=== PATIENT | female | born 1950 | race African-American/Black ===

== ENCOUNTER 2018-12-20 08:55 | Day surgery (SDC) | payer MEDICARE ==
[~2018-12-20] VITALS: Ht 162.6 cm; Wt 68.0 kg
[2018-12-20 09:45] LABS: BASOPHILS 0.4 % (0-2); EOSINOPHILS 1.1 % (0-7); HEMATOCRIT 43.3 % (36.0-48.0); HEMOGLOBIN 14.6 g/dL (12-16); IMMATURE GRANULOCYTES 0.2 % (0-5); LYMPHOCYTES 38.4 % (15-50); MCH 33.3 pg (26.0-34.0); MCHC 33.7 g/dL (31.0-37.0); MCV 98.6 fL (80.0-100.0); MEAN PLATELET VOLUME 11.2 fL (7.4-10.4); MONOCYTES 9.5 % (2-11); NEUTROPHILS 50.4 % (40-80); PLATELET COUNT 216 10x3/uL (130-400); RBC 4.39 10x6/uL (4.00-5.40); RDW 12.8 % (11.5-14.5); WBC 4.7 10x3/uL (4.8-10.8)
[2018-12-20 09:47] LABS: ANION GAP 14.3 mmol/L (8-16); CALCIUM 9.5 mg/dL (8.5-10.1); CREATININE - SERUM 0.9 mg/dL (0.6-1.3); POTASSIUM - SERUM 4.3 mmol/L (3.5-5.1)
[2018-12-20 10:21] LABS: INR 0.99 (0.85-1.17); PROTIME 12.6 SECONDS (11.6-15.0)
[2018-12-20 11:12] VITALS: BP 142/50; BMI 25.8
[2018-12-20 11:15] VITALS: BP 142/50; Ht 162.6 cm; Wt 68.0 kg
--- NOTE | 2018-12-20 18:25 | NUR ---
PATIENT AMBULATES TO BATHROOM AND VOIDS LARGE AMOUNT IN TOILET WITHOUT DIFFICULTY. AMBULATES WITHOUT UNSTEADINESS, RIGHT WRIST PIV DC'D WITH TIP INTACT. PATIENT DRESSING IN PERSONAL CLOTHING
--- NOTE | 2018-12-20 19:50 | NUR ---
DISCHARGE INSTRUCTIONS REVIEWED WITH PATIENT AND FAMILY MEMBER. DISCHARGED HOME VIA WHEELCHAIR TO PRIVATE VEHICLE WITH FAMILY MEMBER
--- NOTE | 2018-12-22 11:08 | OP ---
PATIENT NAME: HIRAL RANGEL MEDICAL RECORD: [id number] :54 LOCATION:[facility] ADMISSION DATE: SURGEON: ZEV ALBERTS MD DATE OF OPERATION: 12/20/2018 PREOPERATIVE DIAGNOSIS: Painless rectal bleeding. POSTOPERATIVE DIAGNOSIS: Rectal bleeding from inflamed friable anal papilla. OPERATION PERFORMED: Examination under anesthesia with anoscopy and excision of anal papilla located at 4 o'clock and also excisional biopsy and electrocautery of 3 wart-like lesions or condylomas or papillomas. SURGEON: Zev Alberts MD ANESTHESIA: General with LMA per [employer]ER. PREOPERATIVE NOTE: Ms. Rangel is a 68-year-old -[place] female who has had some type of prior anoplasty operation. She has recently noted some painless rectal bleeding. She was examined by her spare hand, Dr. Jordan in [place], and found to have an inflamed tag or lesion in the rectum or anal canal, was referred to me. She is brought to the hospital today and was given 2 Fleet enemas this afternoon in the outpatient department and she is brought to the operating room now for her exam under anesthesia. Under general anesthesia in prone position, the patient was prepped and draped in usual manner. Visible immediately was a red projection from the right lateral anal canal. This proved to be an inflamed friable papilla. The base was infiltrated with 0.25% Marcaine with epinephrine and the lesion excised. No sutures were required. There was no bleeding. The specimen was sent to pathology. Then, anoscopy of the remainder of the anal canal and lower rectum was performed. Three small wart-like papillomas or condylomas were identified and they were excised and the base cauterized with electrocautery and infiltrated with Marcaine. No other lesions were seen. The anoscope was removed and the patient awakened and taken back to the recovery room. The patient will go home this afternoon and will do hot Sitz baths 2 or 3 or 4 times a day as needed if she has pain or discomfort. She is given no prescriptions, but advised to take Tylenol and do the hot Sitz baths or use ice if needed for discomfort. She is also given a tube of Americaine, which she can use topically to the anal area p.r.n. She is not necessarily going to have to come back to see me in the office, but I have given her my personal cell number and also of course my office number and requesting that she give us a call on Sunday to check in and let us know how she is doing. I expect to have her path reports by probably Sunday of next week and will review those and notify her of the findings. TRANSINT:[id number] Voice Confirmation ID: [id number] DOCUMENT ID: [id number] OPERATIVE REPORT [id number] HIRAL RANGEL JAMES MD at 1108 CC: CATINA JORDAN MD [id number] DICTATION DATE: 12/20/18 1647 CLOTH SHEARER: 12/20/18 [id number] [facility] [place] 12/20/18 [id number] [place] [address]
== END 2018-12-20 18:50 | disposition home or self-care (01) ==
LOC: D.OPS 08:55
PROVIDERS: ATTEND Surgery
DX: K62.5 Hemorrhage of anus and rectum (principal); D12.9 Benign neoplasm of anus and anal canal; Z01.812 Encounter for preprocedural laboratory examination